=== PATIENT | female | born 1965 | race Caucasian/White ===

== ENCOUNTER → 2016-09-26 | Outpatient (CLI) | payer OTHER ==
[~2016-09-26] MED LIST: ACETAMINOPHEN PO; ALBUTEROL17 GM INH; ALBUTEROL20 ml INH; ALPRAZOLAM PO; AMBIEN PO; APIDRA SOL100 UNIT/1 SUBQ; ASPIRIN81 M2 PO; BACLOFEN10 MG PO; BACTRIM DS TAB1 EACH PO; CIPRO PO; CIPRO250 MG PO; CLARITIN10 M2 PO; CLARITIN10 M3 PO; CLINDAMYCIN HC300 MG PO; DAKIN'S MODIF1000 ML TOP; DIAZEPAM PO; DOXEPIN HCL25 MG PO; FLEXERIL; FLEXERIL10 MG PO; FORADIL12 MCG; GABAPENTIN300 M2 PO; GEODAN PO; GEODON80 MG PO; HUMALOG100 U/ML SUBQ; HUMALOG100 UNIT/1 SUBQ; HUMULIN R100 U/ML SUBQ; HUMULIN R500 U/ML SUBQ; HYDRALAZINE HCL50 MG PO; HYDROCODON-ACE1 EAC9 PO; KEFLEX500 MG PO; LANTUS100 U/ML; LANTUS100 U/ML SUBQ; LANTUS100 UNITS/ SUBQ; LISINOPRIL10 MG PO; LISINOPRIL20 MG PO; LITHIUM CARBON300 M1 PO; LITHIUM CARBON600 MG PO; LITHIUM PO; LORTAB 10/500 T1 TAB; LORTAB 7.5-5001 TAB PO; MORPHINE IR PO; MOTRIN600 MG PO; NEURONTIN300 MG PO; NEURONTIN800 MG PO; NILSTAT; ORUDIS75 M1 PO; OXYCODONE HCL30 MG PO; OXYCODONE15 M1 PO; OXYCONTIN PO; PERCOCET 10/3251 TAB PO; PERCOCET10 PO; PHENERGAN12.5 M1 PR; PRAZOSIN HCL2 MG PO; PREDNISONE; PULMICORT200 MCG/AE; REMERON15 MG PO; ROXICODONE15 MG PO; ROXICODONE5 MG PO; SEROQUEL; SEROQUEL PO; SEROQUEL XR300 M1 PO; SEROQUEL25 MG PO; SEROQUEL300 M1 DOB; TRESIBA FL100 UNIT/1 SUBQ; TYLENOL #3 PO; TYLOX1 CAP 5/50 PO; ULTRAM PO; VICODIN 5/500 T1 TAB PO; ZOFRAN ODT4 MG PO; ZYVOX PO; [UNRECOGNIZED DRUG - OTHER]
--- NOTE | ~2016-09-26 | CR265 ---
[facility] A Service of [facility] & [facility] RADIOLOGY TEXT RESULTS PATIENT: LEANDRA CAROLINA LOCATION: [facility] : [birth year] UNIT #: [id number] AGE: [address]: Killian Cabezas MD SEX: F ORDER DR: [id number] [facility] [address] [place], [place] [address] [id number] MR#: [id number] Acc #: [id number] NAME: LEANDRA CAROLINA : 1965 SEX: F STUDY DATE/TIME: 09/26/2016 7:50 UNIT: [facility] ROOM: STUDY DESCRIPTION: CR Upper GI Series Wo KUB Attending Physician: Killian Cabezas M.D. Referring Physician: Killian Cabezas M.D. Ordering Physician: Killian Cabezas M.D. Primary Care Physician: Gianna Zuniga Aprn MEDICAL IMAGING REPORT This report is preliminary unless electronic signature is present EXAM Upper GI series Ms. Carolina is a 51-year-old lady with a prior history of gastric surgery in 1983. For 5 months she has had weight loss, nausea, vomiting and diarrhea. She underwent endoscopy recently which showed ulcerations in the esophagus as well as within the stomach. PROCEDURE The patient was administered bicarbonate crystals followed by thick and thin barium, multiple fluoroscopic images were obtained. FINDINGS Thoracic esophagus was of normal caliber with no evidence of stricture or mass lesion. Esophageal motility appeared within normal limits. Patient reportedly has a history of ulcers within the esophagus. These are not well seen on the current study. Again evidently were identified on endoscopy. She does have a small hiatal hernia. There are postsurgical changes involving the stomach, this appears to be some form of gastroplasty. There is a stable outpouch communicating with the remainder of the stomach. Per the endoscopy report there was concern for stricture with communication between the gastric pouch and the remainder of the stomach. However this does appear to be patent on today's study with prompt passage of contrast material into the remainder of the stomach. Within the gastric pouch there are filling defects and contour irregularity which certainly could reflect ulceration and/or gastric polyps which again would be keeping with described endoscopic findings. There is also mucosal irregularity seen along the greater curvature of the stomach which I think may reflect additional areas of ulceration and/or hyperplastic polyp formation. Again correlation with recent endoscopy results is suggested. The patient's duodenum appears unremarkable including the duodenal bulb. [facility] A Service of [facility] RADIOLOGY TEXT RESULTS PATIENT: LEANDRA CAROLINA LOCATION: [facility] : [birth year] UNIT #: [id number] AGE: [address]: Killian Cabezas MD SEX: F ORDER DR: Total fluoroscopy time was 2.5 minutes. Total of 32 fluoroscopic images were obtained. IMPRESSION 1. This patient appears to be status post some form of gastroplasty, there was concern for possible stricture between the pouch and the remainder of the stomach; however, contrast did appear to pass easily and promptly into the remainder of stomach although there was some stasis of contrast material within the pouch. Communication between the pouch and the remainder of the stomach did not appear particularly narrowed but again there was some stasis of contrast material within the pouch. 2. Small hiatal hernia. Patient reportedly has some esophageal ulcerations which were not well seen on this study. 3. Contour irregularity identified both within the gastric pouch and the remainder of the stomach which likely corresponds to this patient's known ulcerations. It could also reflect the presence of some hyperplastic polyps. Again correlation with endoscopic findings is recommended. Dictated by... Shaylee Shaw M.D. THIS IS AN ELECTRONICALLY VERIFIED REPORT Shaylee Shaw M.D. at 09/27/2016 10:08 AM FELIPA/francisco TD: 09/27/2016 09:18 JOB #: [id number] MEDICAL IMAGING REPORT Page 1 of 1 COPY
== END | disposition home or self-care (01) ==
LOC: CRAD 06:56
DX: K21.0 Gastro-esophageal reflux disease with esophagitis (principal); R11.2 Nausea with vomiting, unspecified; R10.32 Left lower quadrant pain; K44.9 Diaphragmatic hernia without obstruction or gangrene; K22.10 Ulcer of esophagus without bleeding; Z98.84 Bariatric surgery status; Z88.5 Allergy status to narcotic agent; Z88.2 Allergy status to sulfonamides; Z88.0 Allergy status to penicillin; Z91.041 Radiographic dye allergy status; Z48.815 Encounter for surgical aftercare following surgery on the digestive system
CPT/HCPCS: 74240

== ENCOUNTER 2017-01-21 14:45 | Inpatient (IN) | payer OTHER ==
[~2017-01-21] VITALS: Ht 165.1 cm; Wt 123.8 kg
--- NOTE | ~2017-01-21 | CT4 ---
[facility] A Service of [facility] & [facility] RADIOLOGY TEXT RESULTS PATIENT: LEANDRA CAROLINA LOCATION: A 335-01 : 65 UNIT #: [id number] AGE: [address]: Nahomy Galeana MD SEX: F ORDER DR: [id number] [facility] [address] [place], [place] [address] [id number] MR#: [id number] Acc #: [id number] NAME: LEANDRA CAROLINA. : 1965 SEX: F STUDY DATE/TIME: 01/21/2017 16:58 UNIT: [facility] ROOM: STUDY DESCRIPTION: CT Abd and Pelv Wo Cont Attending Physician: Ramesh Toussaint D.O. Ordering Physician: María Kearns M.D. Primary Care Physician: Gianna Zuniga Aprn MEDICAL IMAGING REPORT This report is preliminary unless electronic signature is present EXAM CT abdomen and pelvis without contrast. HISTORY 51-year-old female generalized abdominal pain, fever, urinary frequency, onset 3 days ago primarily left-sided pain. History of gastric bypass revision several weeks ago. COMPARISON 05/15/2015 TECHNIQUE Axial images of the pelvis without contrast. Multiplanar reconstructions. This CT exam was performed with one or more of the following radiation dose reduction techniques: automatic exposure control, adjustment of mA and/or kV according to patient size, and iterative reconstruction. FINDINGS ABDOMEN: Lung bases unremarkable. The liver, spleen unremarkable. Patient is post cholecystectomy. The pancreas, kidneys and adrenal glands unremarkable. No free air or free fluid. Visualized GI tract to include the appendix is normal. Retroperitoneum unremarkable except for some shotty adenopathy. PELVIS: Bladder moderately distended. The uterus absent. Postsurgical changes lumbar spine with L4-5 discectomy and fusion and decompressive laminectomy lower lumbar spine. The posterior spinal fixation instrumentation noted L3 and L4 with changes of L3-4 discectomy. Old right pelvic fracture involving the anterior pubic bone and inferior pubic ramus. Defect of the right iliac bone from prior bone graft harvest site. Postsurgical changes are noted from prior gastric bypass surgery and apparent gastric division. There may be some induration of the perigastric fat and soft tissues but no drainable fluid collection or STS. [facility] A Service of [facility] & [facility] RADIOLOGY TEXT RESULTS PATIENT: LEANDRA CAROLINA LOCATION: [facility] 335-01 : [birth year] UNIT #: [id number] AGE: [address]: Nahomy Galeana MD SEX: F ORDER DR: abscess. IMPRESSION 1. Postsurgical changes of the stomach consistent with apparent gastric bypass procedure. No evidence of an acute abnormality. 2. Extensive postsurgical changes lumbar spine as detailed above. 3. Patient is post hysterectomy and cholecystectomy. 4. Normal appendix. Dictated by... Rosa Goldman M.D. THIS IS AN ELECTRONICALLY VERIFIED REPORT Rosa Goldman M.D. at 01/24/2017 5:40 PM Jeniffer TD: 01/21/2017 19:47 JOB #: [id number] MEDICAL IMAGING REPORT Page 1 of 1 COPY
--- NOTE | ~2017-01-21 | EKG ---
PATIENT: LEANDRA CAROLINA UNIT #: [id number] Ventricular Rate: 98 BPM Atrial Rate: 98 BPM P-R Interval: 178 ms QRS Duration: 86 ms Q-T Interval: 346 ms QTC Calculation(Bezet): 441 ms P Silva: 47 degrees Calculated R Silva: 14 degrees Calculated T Silva: -10 degrees Diagnosis Line: Normal sinus rhythm Diagnosis Line: Possible Left atrial enlargement Diagnosis Line: Nonspecific ST abnormality Diagnosis Line: Abnormal ECG Diagnosis Line: When compared with ECG of 21-FEB-2016 15:24, Diagnosis Line: No significant change was found Diagnosis Line: Confirmed by KINSEY DURAN MD ([id number]) on 01/24/2017 Diagnosis Line: 7:00:42 AM INTERPRETING MD: ROGER DELVALLE
--- NOTE | ~2017-01-21 | HP ---
Unit #: [id number] #: [id number] Patient: LEANDRA CAROLINA [id number] [facility] [address] [facility], [place] [address] [id number] I MR#: [id number] NAME: LEANDRA CAROLINA. ROOM: 335 Age: 51 Sex: F Admission Date: 01/21/2017 : 1965 Attending Physician: Nahomy Galeana M.D. Primary Care Physician: Gianna Zuniga Aprn HISTORY AND PHYSICAL CHIEF COMPLAINT Flank pain. HISTORY OF PRESENT ILLNESS The patient is a 51-year-old female with a past medical history of diabetes, chronic pain, asthma, ovarian cancer, neuropathy, who presented to the emergency department for evaluation of the above. The patient states that she was in her usual state of health until January 19, 2015, when she developed left flank pain. She states that the pain has been constant in nature. She describes it as "sharp." There are no exacerbating or alleviating factors. She denies any similar pain. She has had chills and documented fever. She reports burning with urination as well as urinary frequency. She also reports intermittent palpitations and lightheadedness. She has had nausea but no vomiting. She denies any diarrhea. In the emergency department, initial temperature was 99.1, pulse 101, respirations 16, blood pressure 144/71. Urinalysis showed findings concerning for urinary tract infection, lactic acid is 2.3. She was given 750 mg of Levaquin in the emergency department as well as 1 L of normal saline, 25 mg of Dilaudid, 4 mg of Zofran. She is being admitted to [facility] for evaluation and further treatment. PAST MEDICAL HISTORY 1. Admission to [facility] November 22 through the 2016 for laparoscopic reversal of vertical band gastroplasty. 2. Admission to [facility] September 10 through the 2015 for right side diabetic ulcer. Wound culture was positive for MRSA. 3. Diabetes with peripheral neuropathy. 4. Bipolar disorder. 5. Chronic pain, followed by [facility], maintained on narcotics. 6. Asthma. 7. Ovarian cancer, status post total abdominal hysterectomy, radiation treatment and chemotherapy in 1999. She is no longer followed by an oncologist. 8. Febrile seizures as a child. She has not been on antiepileptic medication since the age of 15. 9. Echocardiogram December 30, 2013, showed mild concentric left ventricular hypertrophy with an ejection fraction greater than 55%. 10. The patient had a stress test December 30, 2013, that was technically Unit #: [id number] #: [id number] Patient: LEANDRA CAROLINA A poor quality with preserved ejection fraction of 56%. PAST SURGICAL HISTORY 1. Cardiac catheterization December 31, 2013, showed angiographically normal coronary arteries with an ejection fraction of 60%. 2. Vertical banded gastroplasty and reversal. 3. Hysterectomy. 4. Back surgery. 5. Cervical spinal surgery. 6. Cholecystectomy. 7. Debridement of right diabetic foot ulcer with drainage of abscess. SOCIAL HISTORY The patient lives with her boyfriend. There is no tobacco or alcohol use. She walks without assistance. Her code status is a Full Code. FAMILY HISTORY Notable for her sister having diabetes. ALLERGIES Penicillin, iodine, morphine, codeine, ketorolac. HOME MEDICATIONS 1. Seroquel. 2. [place]. 3. Oxycodone. 4. Zofran. 5. Phenergan. 6. Humalog. 7. Doxepin. 8. Neurontin. Home medications will need to be reviewed and verified. REVIEW OF SYSTEMS A complete review of systems is negative except as indicated in the HPI. The patient states that she has lost over 75 pounds in the past eight months. The patient states that her blood sugars are typically in the 100s. Record review with "speech disorder" as a problem. The patient denies any history of speech problems. DIAGNOSTIC STUDIES CARDIOVASCULAR: EKG shows normal sinus rhythm with a rate of 98 beats/minute. IMAGING: CT of the abdomen and pelvis shows no acute abnormality. LABORATORY: Urinalysis notable for positive nitrate, greater than 1000 glucose, 5-10 white blood cells, 4+ bacteria. No squamous cells. Complete blood count notable for white blood cell count of 10.7, MCV 82.3, lactic acid 2.3. Comprehensive metabolic panel notable for sodium of 133, chloride is 96, glucose 415, alkaline phosphatase 104, lipase is 20. Alcohol level is less than 5. Unit #: [id number] #: [id number] Patient: LEANDRA CAROLINA PHYSICAL EXAMINATION VITAL SIGNS: Temperature 99.1, pulse 101, respirations 16, blood pressure 144/71. Oxygen saturation is 94% on room air. GENERAL: The patient is a female who is awake and alert, in no acute distress. HEENT: The head is atraumatic. Mucous membranes are moist. NECK: Supple. Trachea is midline. CARDIOVASCULAR: Regular rate and rhythm. LUNGS: Clear to auscultation bilaterally with no increased work of breathing. ABDOMEN: Soft. She is mildly montrell to palpation in the suprapubic area. Bowel sounds are present in all four quadrants. GENITOURINARY: The patient does have left costovertebral angle tenderness to palpation. EXTREMITIES: Nontender with no pedal edema. NEURO: The patient is awake and alert. She follows commands. PSYCH: Mood and affect are normal. The patient is cooperative. SKIN: Skin of examined areas is warm and dry. ASSESSMENT The patient is a 51-year-old female with: 1. Urinary tract infection: Review of urine cultures from [facility] show that the patient had greater than 100,000 E. coli on March 11, 2014, that was resistant to Levaquin and ampicillin. There was also urine culture from August 09, 2012 that grew 30,000 to 40,000 E. coli that was pansensitive. The patient received Levaquin in the emergency department. She does have a severe allergy to penicillin. 2. Sepsis with initial lactic acid of 2.3. 3. Uncontrolled diabetes with glucose of 415: The patient is not in DKA. 4. Chronic pain, maintained on narcotics, followed by [facility]. 5. Asthma. 6. Ovarian cancer, status post total abdominal hysterectomy, radiation chemotherapy. 7. Peripheral neuropathy secondary to diabetes. 8. Obesity with a BMI of 41. PLAN 1. Admit to intermediate level. 2. Advance diet to healthy heart consistent carb diet as tolerated. 3. Normal saline at 125 mL/hour. 4. Fall precautions. 5. Urine culture and sensitivity on urine in the lab. 6. Blood cultures x2. 7. Levaquin IV pending urine culture results. 8. P.r.n. Zofran. 9. P.r.n. Tylenol. 10. Sepsis protocol, repeat lactic acid. 11. Serial cardiac enzymes. 12. Check hemoglobin A1c and TSH. 13. Los dose sliding scale insulin with Accu-Cheks. 14. Supplemental oxygen. 15. P.r.n. Duo-Nebs. 16. Check lithium level. 17. Repeat labs in the morning. 18. SCDs for DVT prophylaxis. 19. Additional workup and consultants based on above. Unit #: [id number] #: [id number] Patient: LEANDRA CAROLINA Dictated by Codie Morrell/yolanda TD: 01/22/2017 08:02 JOB #: [id number] HISTORY AND PHYSICAL Page 1 of 1 X Ligia Coates MD X HISTORY AND PHYSICAL
--- NOTE | ~2017-01-21 | DS ---
Unit #: [id number] #: [id number] Patient: LEANDRA CAROLINA [id number] [address] [place], [place] [address] [id number] MR#: [id number] NAME: LEANDRA CAROLINA. ROOM: [facility] Age: 51 Sex: F Admission Date: 01/21/2017 : 1965 Discharge Date: 01/23/2017 Attending Physician: Nahomy Galeana M.D. Primary Care Physician: Gianna Zuniga, Exercise Scientist DISCHARGE SUMMARY DISCHARGE DIAGNOSES 1. Urinary tract infection. 2. Uncontrolled type 2 diabetes on insulin. 3. Chronic pain with narcotic dependence. 4. Morbid obesity. HOSPITAL COURSE The patient is a 51-year-old female who presented to [facility] secondary to flank pain. She described as a sharp and fairly constant. She reported dysuria and frequency. UA seemed consistent with urinary tract infection. Patient was started on IV Levaquin. There was initially some question of sepsis; however, I am unable to find a documented fever. Patient has remained fever free. Her white count was 10.7 on admission and has remained between 8 and 10. Urine cultures are growing E. coli. No sensitivities are available. I will discharge the patient on Bactrim and follow for resistances. The patient's blood sugars remained uncontrolled on her home insulin regimen. The patient's hemoglobin A1c was noted to be 13.6. I have increased the patient's long-acting insulin from 15 to 25 units. She should follow up with her primary care provider. DISCHARGE MEDICATIONS 1. Neurontin 800 mg p.o. t.i.d. 2. Doxepin 25 mg p.o. nightly. 3. Zofran 4 mg p.o. t.i.d. as needed for nausea. 4. Phenergan 12.5 mg p.o. t.i.d. as needed for nausea. 5. Seroquel 600 mg p.o. nightly and 25 mg at noon. 6. Humalog 15 units before meals. 7. Insulin Degludec 25 units nightly. 8. Oxycodone 15 mg p.o. q.i.d. as needed for hnbufpdz-ul-wvlbra pain. 9. Ultram 300 mg p.o. t.i.d. as needed for pain. FOLLOWUP The patient should follow up with her primary care provider in one week. Dictated by... Jameson Hartley M.D. Unit #: [id number] #: [id number] Patient: GELEANDRA Chayo GUERRERO/crow TD: 01/24/2017 12:42 JOB #: [id number] DISCHARGE SUMMARY Page 1 of 1 X Jameson Hartley MD X DISCHARGE SUMMARY
[~2017-01-21 14:45] MED LIST changes: -BACTRIM DS TAB1 EACH PO; -HUMALOG100 UNIT/1 SUBQ; -OXYCODONE HCL30 MG PO; -PHENERGAN12.5 M1 PR; -SEROQUEL300 M1 DOB; -TRESIBA FL100 UNIT/1 SUBQ
[2017-01-21 16:15] LABS: URINE SOURCE CLEAN CATCH
[2017-01-21 16:25] LABS: URINE APPEARANCE CLEAR; URINE BILIRUBIN NEG (NEG); URINE BLOOD NEG (NEG); URINE COLOR YELLOW; URINE GLUCOSE >1000 MG/DL (NEG); URINE KETONE NEG (NEG); URINE LEUKOCYTE ESTERASE NEG (NEG); URINE NITRATE POS (NEG); URINE PH 5.5 (5-8); URINE PROTEIN NEG (NEG); URINE SPECIFIC GRAVITY 1.036 (1.003-1.035); URINE UROBILINOGEN 0.2 MG/DL (NEG)
[2017-01-21 16:27] LABS: CULTURE INDICATED? YES; URBCS1 AUWI 0-2 /[HPF] (0-2); URINE BACTERIA AUWI 4+ (NEGATIVE); URINE SQUAMOUS EPITHELIAL CELL NONE SEEN /[HPF]
[2017-01-21 17:02] LABS: BASOPHIL# 0.1 X10e3 (0-0.3); BASOPHIL% 0.6 % (0-2.5); EOSINOPHIL# 0.2 X10e3 (0-0.7); HEMATOCRIT 44.2 % (35.0-45.0); HEMOGLOBIN 13.9 gm/dL (12.0-16.0); LYMPHOCYTE# 3.6 X10e3 (1.0-3.5); LYMPHOCYTE% 33.7 % (17.0-45.0); MEAN CELL VOLUME 82.3 FL (83-96); MEAN CORPUSCULAR HGB CONC 31.6 g/dL (30-36); MEAN PLATELET VOLUME 7.8 FL (6.5-11.5); MONOCYTE# 0.5 X10e3 (0-1.0); MONOCYTE% 4.2 % (3.0-12.0); NEUTROPHIL# 6.4 X10e3 (1.5-7.1); NEUTROPHIL% 59.5 % (40-75); PLATELET COUNT 271 X10e3 (140-420); RED BLOOD COUNT 5.37 X10e (3.90-5.30); RED CELL DISTRIBUTION WIDTH 16.8 % (11.0-15.5); WHITE BLOOD COUNT 10.7 X10e3 (4.0-10.5)
[2017-01-21 17:04] LABS: DIFF IND NO
[2017-01-21 17:27] LABS: ALBUMIN SERUM 3.9 g/dL (3.5-5.0); ALKALINE PHOSPHATASE 104 U/L (32-92); ALT (SGPT) 35 U/L (10-40); AST (SGOT) 37 U/L (10-42); BILIRUBIN, DIRECT 0.1 mg/dL (0.0-0.2); BILIRUBIN,INDIRECT 0.3 mg/dL (0.0-0.9); BILIRUBIN,TOTAL 0.4 mg/dL (0.2-2.0); BLOOD UREA NITROGEN 13 mg/dL (9-23); BUN/CREATININE RATIO 16.25; CALCIUM SERUM 9.2 mg/dL (8.4-10.2); CARBON DIOXIDE 27 mmol/L (22-31); CHLORIDE 96 mmol/L (100-111); CREATININE SERUM 0.8 mg/dL (0.6-1.4); GLOM FILT RATE Estimated 85.4 mL/min (>60); GLUCOSE FASTING 415 mg/dL (70-110); LIPASE 20 U/L (22-51); POTASSIUM 4.5 mmol/L (3.5-5.1); PROTEIN TOTAL SERUM 8.3 g/dL (6.0-8.3); SODIUM 133 mmol/L (135-145)
[2017-01-21 17:30] LABS: ALCOHOL BLOOD <5 mg/dL (0)
[2017-01-21] MEDS ORDERED: SEROQUEL300 M1 DOB (18:35)
[2017-01-21] MEDS ORDERED: SEROQUEL25 MG PO (18:36)
[2017-01-21] MEDS ORDERED: ULTRAM PO (18:37)
[2017-01-21] MEDS ORDERED: OXYCODONE HCL30 MG PO (18:38)
[2017-01-21] MEDS ORDERED: ZOFRAN ODT4 MG PO (18:39)
[2017-01-21] MEDS ORDERED: PHENERGAN12.5 M1 PR (18:40)
[2017-01-21] MEDS ORDERED: HUMALOG100 UNIT/1 SUBQ (18:40)
[2017-01-21] MEDS ORDERED: DOXEPIN HCL25 MG PO (18:46)
[2017-01-21] MEDS ORDERED: NEURONTIN800 MG PO (18:46)
[2017-01-21] MEDS ORDERED: TRESIBA FL100 UNIT/1 SUBQ (18:51)
[2017-01-21 19:22] LABS: CK TOTAL 30 IU/L (26-140)
[2017-01-22 07:01] LABS: BILIRUBIN,TOTAL 0.2 mg/dL (0.2-2.0); CALCIUM SERUM 8.5 mg/dL (8.4-10.2); CREATININE SERUM 0.8 mg/dL (0.6-1.4); GLOM FILT RATE Estimated 85.4 mL/min (>60); POTASSIUM 4.6 mmol/L (3.5-5.1); PROTEIN TOTAL SERUM 6.7 g/dL (6.0-8.3)
[2017-01-22 07:23] LABS: BASOPHIL% 0.4 % (0-2.5); EOSINOPHIL# 0.2 X10e3 (0-0.7); EOSINOPHIL% 2.8 % (0.0-7.0); HEMATOCRIT 40.4 % (35.0-45.0); HEMOGLOBIN 12.6 gm/dL (12.0-16.0); LYMPHOCYTE# 3.6 X10e3 (1.0-3.5); LYMPHOCYTE% 44.3 % (17.0-45.0); MEAN CELL VOLUME 83.5 FL (83-96); MEAN CORPUSCULAR HGB CONC 31.2 g/dL (30-36); MEAN PLATELET VOLUME 7.4 FL (6.5-11.5); MONOCYTE# 0.4 X10e3 (0-1.0); MONOCYTE% 5.4 % (3.0-12.0); NEUTROPHIL# 3.8 X10e3 (1.5-7.1); NEUTROPHIL% 47.1 % (40-75); PLATELET COUNT 225 X10e3 (140-420); RED BLOOD COUNT 4.83 X10e (3.90-5.30); RED CELL DISTRIBUTION WIDTH 16.8 % (11.0-15.5); WHITE BLOOD COUNT 8.1 X10e3 (4.0-10.5)
[2017-01-22 07:27] LABS: DIFF IND NO
[2017-01-22 08:22] LABS: CK TOTAL 22 IU/L (26-140)
[2017-01-23 05:41] LABS: HEMATOCRIT 41.1 % (35.0-45.0); HEMOGLOBIN 12.9 gm/dL (12.0-16.0); MEAN CORPUSCULAR HGB CONC 31.3 g/dL (30-36); MEAN PLATELET VOLUME 7.4 FL (6.5-11.5); RED BLOOD COUNT 4.95 X10e (3.90-5.30); RED CELL DISTRIBUTION WIDTH 16.8 % (11.0-15.5); WHITE BLOOD COUNT 10.1 X10e3 (4.0-10.5)
[2017-01-23 06:45] LABS: BUN/CREATININE RATIO 14.28; CREATININE SERUM 0.7 mg/dL (0.6-1.4); GLOM FILT RATE Estimated 100.3 mL/min (>60); POTASSIUM 4.6 mmol/L (3.5-5.1)
[2017-01-23] MEDS ORDERED: TRESIBA FL100 UNIT/1 SUBQ (11:47)
[2017-01-23] MEDS ORDERED: BACTRIM DS TAB1 EACH PO (11:48)
== END 2017-01-23 13:12 | disposition home or self-care (01) | DRG 872 ==
LOC: CED 14:45 → CEDOF 18:35 → CED 18:45 → CEDOF 18:45 → C3A PCU 23:15
PROVIDERS: Emergency Medicine; Family Medicine
DX: A41.9 Sepsis, unspecified organism (principal); E11.40 Type 2 diabetes mellitus with diabetic neuropathy, unspecified; N39.0 Urinary tract infection, site not specified; Z68.41 Body mass index [BMI] 40.0-44.9, adult; E11.9 Type 2 diabetes mellitus without complications; G89.29 Other chronic pain; J45.909 Unspecified asthma, uncomplicated; F31.9 Bipolar disorder, unspecified; E11.65 Type 2 diabetes mellitus with hyperglycemia; E66.9 Obesity, unspecified; Z85.43 Personal history of malignant neoplasm of ovary; Z90.710 Acquired absence of both cervix and uterus; Z92.3 Personal history of irradiation; Z92.21 Personal history of antineoplastic chemotherapy; Z90.49 Acquired absence of other specified parts of digestive tract; Z88.0 Allergy status to penicillin; Z88.5 Allergy status to narcotic agent
CPT/HCPCS: 36415; 51701; 74176; 80048; 80053; 80076; 80178; 81003; 82550; 82947; 83036; 83605; 83690; 84443; 84484; 85025; 85027; 87040; 87086; 87088; 87186; 93005; 94760; 96360; 97163; 97166; 99285; G0480; G8978-GP; G8979-GP; G8980-GP; G8987-GO; G8988-GO; G8989-GO; J1170; J1815; J1956; J2405